=== PATIENT | female | born 1985 | race Caucasian/White ===

== ENCOUNTER 2018-06-30 13:58 | Inpatient (IN) | payer BC ==
[2018-06-30] MEDS ORDERED: Lactated Ringers 1000 ML Bag* 1,000 ML IV ONE ×2 (14:41→21:41)
[2018-06-30] MEDS ORDERED: Penicillin G Potassium IV* 5,000,000 UNITS in NS 0.9% 100 ML* 100 ML IVPB ONE (14:41)
[2018-06-30] MEDS ORDERED: Buffered Lidocaine 1% SYRIN* 1 ML/SYRINGE INTRADERM ONE (14:41)
--- NOTE | 2018-06-30 14:46 | HP ---
General Information - Reason for Visit IOL, gestational hypertension, [id number], induction of labor - General Information Maternal Age: 29 Grav: 3 Para: 1 SAB: 1 IEA: 0 Estimated Due Date: 04/10/15 Determined By: LMP Maternal Blood Type and Rh: O Positive - Results this Serology/RPR Result: Non-Reactive Rubella Result: Immune HBsAg Result: Negative HIV Result: Negative GBS Culture Result: Positive Past Medical History Delivery History: Hx Uncomplicated Vaginal Delivery Pertinent Past Medical History: See Records - uterine fibroids, BMI 34 , Pertinent Past Surgical History: None Pertinent Family History: See Records - HTN, DM, colon CA, blood clots - Antepartal Records Antepartal Records: Reviewed, Complicated by: - GBS +, uterine fibroids, BMI 34, gestational hypertension Review of Systems Constitutional: Comfortable CV Complaint: No Respiratory: Shortness of Breath: No Gastrointestinal: No Nausea/Vomiting, Normal Bowel Movement Genitourinary: No Dysuria, No Leaking Fluid Musculoskeletal: No Complaint, No Epigastric Pain Neurological: No Headache, No Visual Changes Movement: Normal Exam Allergies/Adverse Reactions: Allergies No Known Allergies Allergy (Verified 02/08/13 16:15) T:98.2, P:97, R: 20, BP: 139/79, O2:99% - Measurements Height: 5 ft 9 in Weight: 227 lb Body Mass Index (BMI): 33.5 Pre- Weight: 208 lb - Exam Breast: Breast Exam Deferred CVA: No CVA Tenderness Extremities: No Edema Heart: Normal Rhythm/Heart Sounds HEENT: No Significant Findings Lungs: Clear Bilaterally Rectal: Rectal Exam Deferred Reflexes: DTR 2+ Thyroid: No Thyromegaly - Abdominal Exam Abdomen Exam: Fundal Height Consistent with Dates - Ultrasound/Biophysical Profile Ultrasound Status: Not Done Targeted Exam Findings Estimated Weight: 8lbs Cervical Exam: 3cm Effacement: 70% Station: -2 Presenting Part: Vertex Membrane Status: Intact Bleeding/Discharge: None EFM Findings - External Monitor Findings Baseline Heart Rate: 150 External Monitor Findings: Accelerations Present, No Pattern of Variable or Late Decelerations, Variability Moderate, Baseline Stable, Accelerations Absent Contractions: Irregular, Mild, < 45 Seconds Assessment/Plan - Assessment 32 y.o. , 39w2d, gestational hypertension, induction of labor - Obstetrical Risk Factors Obstetrical Risk Factors: GBS Positive - Plan Plan: Induction, Antibiotic Prophylaxis - Date/Time of Admission Date of Admission: 06/30/18 Time of Admission: 14:15
[2018-06-30] MEDS ORDERED: Lactated Ringers 1000 ML Bag* 1,000 ML IV SCH ×2 (15:00→22:00)
[2018-06-30] MEDS ORDERED: Oxytocin in LR* 20 UNITS/1,000 ML BAG IVPB SCH (15:00)
[2018-06-30 15:30] LABS: ABS Basophils 0 10^3/ul (0-0.2); ABS Eosinophils 0.1 10^3/ul (0-0.6); ABS Lymphocytes 1.4 10^3/ul (1.0-4.8); ABS Monocytes 0.6 10^3/ul (0-0.8); ABS Nucleated RBC 0 10^3/ul; Eosinophil % 0.7 %; Hematocrit 34 % (35-47); Hemoglobin 11.8 g/dl (12.0-16.0); Lymphocyte % 17.4 %; Mean Corpuscular HGB Conc 34 g/dl (31-36); Mean Corpuscular Hemoglobin 31 pg (27-31); Mean Corpuscular Volume 89 fL (80-97); Mean Platelet Volume 10.4 fL (7.4-10.4); Nucleated Red Blood Cells % 0; Platelet Count 167 10^3/ul (150-450); Red Blood Count 3.86 10^6/ul (4.00-5.40); Red Cell Distribution Width 14 % (10.5-15); White Blood Count 8.1 10^3/ul (3.5-10.8)
[2018-06-30 15:48] LABS: Albumin 3.5 g/dL (3.2-5.2); Albumin/Globulin Ratio 1.1 (1-3); BUN/Creatinine Ratio 18.9 (8-20); Calcium 8.7 mg/dL (8.6-10.3); EGFR Non-African American 135.4 (>60); Globulin 3.1 g/dL (2-4); Potassium 3.9 mmol/L (3.5-5.0); Total Bilirubin 0.3 mg/dL (0.2-1.0); Total Protein 6.6 g/dL (6.4-8.9)
[2018-06-30 17:02] LABS: Urine Appearance Cloudy; Urine Bilirubin Negative (Negative); Urine Blood Negative (Negative); Urine Color Yellow; Urine Glucose Negative (Negative); Urine Ketones Negative (Negative); Urine Nitrite Negative (Negative); Urine Protein Negative (Negative); Urine Specific Gravity 1.021 (1.010-1.030); Urine Urobilinogen Negative (Negative)
[2018-06-30] MEDS: Penicillin G Potassium IV* 2,500,000 UNITS in NS 0.9% 100 ML* 100 ML IVPB SCH ×2 (19:30→23:35)
--- NOTE | 2018-06-30 19:57 | PN ---
Progress Note - Progress Note Date of Service: 06/30/18 SOAP: Subjective: [Pt reports cramping, denies contractions. Reports +FM, denies VB.] Objective: [T:97.2, R:16, BP:129/80, P:94, FHT: 150 bpm, + accels, -decels, moderate variability, ctx q 3-5 cervix:4/70/-1, piocin at 8.] Assessment: [32 y.o. , gestational hypertension, induction of labor] Plan: [1) AROM- bloddy, scant 2) Continue pitocin 3) Position changes and therapeutic support 4) Epidural when uncomfortable per pt wishes.]
[2018-06-30] MEDS ORDERED: OBEPIDURAL* 250 ML EPIDURAL ONE (21:14)
[2018-06-30] MEDS ORDERED: Phenylephrine IV* 40 MCG/ML 10 ML SYRINGE IV PUSH PRN (21:41)
[2018-06-30] MEDS ORDERED: Sodium Citrate/Citric Acid* 15 ML UDC PO PRN (21:41)
[2018-06-30] MEDS ORDERED: Famotidine TAB* 20 MG PO PRN (21:41)
[2018-06-30] MEDS ORDERED: OBEPIDURAL* 250 ML EPIDURAL SCH (22:00)
--- NOTE | 2018-07-01 00:03 | PROCNOTE ---
[facility] OB: Delivery Note - Delivery A Date of : 06/30/18 Time of : 23:43 Sex: Female Score 1 Minute: 9 Score 5 Minutes: 9 Gestational Age in Weeks and Days at Delivery: 39 Weeks and 2 Days Delivery Method: Spontaneous Vaginal Labor: Induced Amniotic Fluid: Bloody Estimated Blood Loss: 250 Anesthesia/Analgesia: CEI for Labor Delivered By: Nandini Garcia - Nursery Level of Nursery: Regular/Bedside - Perineum Perineal Injury: Perineal Laceration, 1st Degree Perineal Repair: By Delivering Practioner - Events Delivery Events of Note: Pitocin During Labor
[2018-07-01] MEDS ORDERED: Glycerin ADULT SUPP PR PRN (00:04)
[2018-07-01] MEDS ORDERED: Dibucaine 1% 28.35 GM TUBE PR PRN (00:04)
[2018-07-01] MEDS ORDERED: Acetaminophen TAB* 325 MG PO PRN (00:04)
[2018-07-01] MEDS ORDERED: Witch Hazel PAD* JAR TOPICAL PRN (00:04)
[2018-07-01] MEDS ORDERED: Lactated Ringers 1000 ML Bag* 1,000 ML IV SCH (01:00)
[2018-07-01] MEDS: Ibuprofen TAB* 600 MG PO PRN ×4 (02:28→23:17)
[2018-07-01] MEDS ORDERED: Simethicone TAB* 80 MG TAB.CHEW PO SCH (08:30)
[2018-07-01] MEDS: Docusate CAP* 100 MG PO SCH ×2 (09:34→14:19)
[2018-07-02 00:10] VITALS: BP 124/79
[2018-07-02] MEDS: Ibuprofen TAB* 600 MG PO PRN (05:15)
[2018-07-02 06:39] LABS: ABS Basophils 0 10^3/ul (0-0.2); ABS Eosinophils 0.2 10^3/ul (0-0.6); ABS Lymphocytes 2.7 10^3/ul (1.0-4.8); ABS Monocytes 0.7 10^3/ul (0-0.8); ABS Neutrophils 4.2 10^3/ul (1.5-7.7); ABS Nucleated RBC 0 10^3/ul; Hematocrit 33 % (35-47); Hemoglobin 10.9 g/dl (12.0-16.0); Lymphocyte % 34.8 %; Mean Corpuscular HGB Conc 34 g/dl (31-36); Mean Corpuscular Hemoglobin 30 pg (27-31); Mean Corpuscular Volume 90 fL (80-97); Mean Platelet Volume 10.5 fL (7.4-10.4); Nucleated Red Blood Cells % 0.1; Platelet Count 140 10^3/ul (150-450); Red Cell Distribution Width 14 % (10.5-15); White Blood Count 7.7 10^3/ul (3.5-10.8)
[2018-07-02] MEDS ORDERED: Ferrous Gluconate TAB* 324 MG TAB PO SCH (09:00)
[2018-07-02] MEDS: Docusate CAP* 100 MG PO SCH (09:25)
== END 2018-07-02 11:45 | disposition home or self-care (01) | DRG 560 ==
LOC: MCHOBOUT 13:58 → MCHOB 14:11
PROVIDERS: ADMIT Midwife; ATTEND Midwife
PROC: 10E0XZZ Delivery of Products of Conception, External Approach (ICD-10-PCS; principal; 2018-06-30)
PROC: 3E033VJ Introduction of Other Hormone into Peripheral Vein, Percutaneous Approach (ICD-10-PCS; 2018-06-30)
PROC: 10907ZC Drainage of Amniotic Fluid, Therapeutic from Products of Conception, Via Natural or Artificial Opening (ICD-10-PCS; 2018-06-30)
PROC: 0HQ9XZZ Repair Perineum Skin, External Approach (ICD-10-PCS; 2018-06-30)
DX: O13.4 Gestational [pregnancy-induced] hypertension without significant proteinuria, complicating childbirth (principal); Z37.0 Single live birth; O99.824 Streptococcus B carrier state complicating childbirth; O34.13 Maternal care for benign tumor of corpus uteri, third trimester; D25.9 Leiomyoma of uterus, unspecified; O70.0 First degree perineal laceration during delivery; Z3A.39 39 weeks gestation of pregnancy
CPT/HCPCS: 36415; 80053; 81003; 85025; 86850; 86900; 86901; A9270-GY; J2540